=== PATIENT | female | born 1960 | race Caucasian/White ===

== ENCOUNTER → 2017-02-26 | Outpatient (CLI) | payer BC ==
[~2017-02-26] MED LIST: DOCO1CAP2 PO; ERGO80004 PO; ESTR10TA VG; IBUP-1060 PO; LEVO150T5 PO; LISI-338 PO; PREG150C PO; RANI15SY PO
--- NOTE | 2017-02-26 11:05 | KCIC ---
MR of the left hip Indication: Left hip pain for 4 months. No known injury. Technique: Standard multiplanar sequences are obtained. Findings: Bones: No bone lesion, acute fracture or acute bone marrow edema. No femoral head osteonecrosis. Effusion: No significant effusion Cartilage: No evidence of acute cartilage defect or advanced DJD. Labrum: Mild degenerative signal. No clear-cut detachment or tear. Gluteus minimus and medius tendon: Tendinosis with partial tearing of the gluteus minimus tendon. Gluteus medius intact. Hamstring tendon: Intact Iliopsoas tendon: Intact Rectus femoris tendon attachment:Intact Soft tissue:No significant acute findings. Diagnostically limited coronal inversion recovery survey sequence obtained with a large [id number] demonstrates no acute pathology at the contralateral hip or visualized sacroiliac joints. Impression: 1. 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 2. Mild degeneration of the left labrum without evidence of a tear. Electronically signed by: Kristian Mullins MD (02/26/2017 11:02 AM) [id number]
--- NOTE | 2017-02-26 12:05 | KCIC ---
MR of the right hip Indication: Right hip pain for 4 months. No known injury. Technique: Standard multiplanar sequences are obtained. Findings: Bones: No bone lesion, acute fracture or acute bone marrow edema. No femoral head osteonecrosis. Effusion: No significant effusion Cartilage: No evidence of acute cartilage defect or advanced DJD. Labrum: Minimal degenerative-type signal within the labrum without evidence of a tear or detachment. Gluteus minimus and medius tendon: The gluteus minimus tendinosis with partial tearing. Gluteus medius tendon intact. Hamstring tendon: Intact Iliopsoas tendon: Intact Rectus femoris tendon attachment:Intact Soft tissue:No significant acute findings. Impression: 1. 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 2. Mild labral degeneration without tear. Electronically signed by: Kristian Mullins MD (02/26/2017 12:02 PM) [id number]
== END | disposition home or self-care (01) ==
LOC: KCIC MRI 09:18
PROVIDERS: ATTEND Family Medicine
DX: M25.551 Pain in right hip (principal); M25.552 Pain in left hip
CPT/HCPCS: 73721

== ENCOUNTER → 2017-10-04 | Outpatient (CLI) | payer BC | END | disposition home or self-care (01) | LOC: KCIC US 13:03 | DX: N13.2 Hydronephrosis with renal and ureteral calculous obstruction (principal) | CPT/HCPCS: 76770 ==

== ENCOUNTER → 2019-02-15 | Outpatient (CLI) | payer BC ==
[~2019-02-15] MED LIST changes: +ERGO800010 PO; -ERGO80004 PO
--- NOTE | 2019-02-15 10:58 | KCIC ---
LUMBAR SPINE WO CONTRAST History: Back pain. Prior vertebroplasty. Technique: Multiplanar, multi sequential MR imaging was performed of the lumbar spine. Comparison: July 08, 2016 report available. Images not readily available for review. Findings: Chronic L1 vertebral body fracture with vertebroplasty material identified. Otherwise, normal vertebral body height. No acute fracture. Normal alignment. Conus terminates at the normal location. No evidence of nerve root clumping. L1-L2: No canal or neuroforaminal narrowing. L2-L3: No canal or neuroforaminal narrowing. L3-L4: Small posterior disc bulge. Mild facet arthropathy. Bilateral right greater than left facet joint effusions. No canal narrowing. No neural foraminal narrowing. L4-L5: Small posterior disc bulge. Advanced facet arthropathy with bilateral facet joint effusions. Mild bilateral subarticular recess narrowing. No canal narrowing. Ligamentum flavum thickening. No neural foraminal narrowing. L5-S1: Small posterior disc bulge. Small left foraminal disc protrusion. Advanced facet arthropathy with possible left synovial cyst in the neural foramen. Bilateral facet joint effusions. No canal narrowing. Mild left subarticular recess narrowing. Moderate left neural foraminal narrowing with abutment of the exiting left L5 nerve root. Impression: 1. Multilevel lumbar spondylosis with advanced lower lumbar facet arthropathy and facet joint effusions. 2. Small left L5-S1 foraminal protrusion contributing to moderate left neural foraminal narrowing with abutment of the exiting left L5 nerve root. Recommend correlation for left L5 radiculopathy. 3. Chronic L1 compression fracture with vertebroplasty material. Electronically signed by: Bong Gibson DO (02/15/2019 10:55 AM) [id number]
== END | disposition home or self-care (01) ==
LOC: KCIC MRI 09:29
PROVIDERS: ATTEND Orthopaedic Surgery
DX: M47.816 Spondylosis without myelopathy or radiculopathy, lumbar region (principal); M12.88 Other specific arthropathies, not elsewhere classified, other specified site; M25.48 Effusion, other site; M51.27 Other intervertebral disc displacement, lumbosacral region; M48.061 Spinal stenosis, lumbar region without neurogenic claudication; M84.48XD Pathological fracture, other site, subsequent encounter for fracture with routine healing
CPT/HCPCS: 72148

== ENCOUNTER → 2019-04-06 | Outpatient (CLI) | payer BC ==
--- NOTE | 2019-04-07 07:49 | KCIC ---
Exam: Thoracic spine Date: 04/06/2019 12:00 AM CLINICAL HISTORY: BACK PAIN WITH RADICULOPATHY AFFECTING RLE COMPARISON: None FINDINGS: AP and lateral/swimmers views of the thoracic spine submitted. Moderate superimposed artifact at the cervicothoracic junction on the lateral view based on technique. Exam shows preserved disc height throughout. Negative degenerative/proliferative changes. Negative compression fracture. Changes of L1 vertebroplasty are seen. Straightening of the normal thoracic kyphosis. Negative focal paraspinal line deviation/hematoma. Decreased bone mineral density. IMPRESSION: 1. No evidence for acute fracture or subluxation. 2. Decreased bone mineral density. Electronically signed by: Evelio Degroot MD (04/07/2019 7:46 AM) [facility]
--- NOTE | 2019-04-07 07:51 | KCIC ---
EXAM: AP, lateral and lumbosacral spot views with lateral flexion/extension and bilateral oblique views of the lumbar spine DATE: 04/06/2019 12:00 AM INDICATION: Back pain with radiculopathy affecting right lower extremity. COMPARISON: No Prior FINDINGS: For the purposes of this report there are 5 nonrib-bearing lumbar-type vertebral bodies. Changes of L1 vertebral plasty are seen. Vertebral body heights are preserved. No definite new compression fractures seen. Leftward curvature of the lumbar spine apex L3. No spondylolisthesis. Mild L4-5 and moderate T12-L1 disc height loss. Facet degenerative changes at L1-2 and below. No spondylolisthesis. On the mild range of motion provided, no dynamic instability. Right upper quadrant cholecystectomy clips are seen. Moderate colonic stool content. IMPRESSION: 1. Multilevel spondylosis as above 2. Negative acute fracture or subluxation. No dynamic instability. 3. Changes of prior L1 vertebroplasty are seen. Electronically signed by: Evelio Degroot MD (04/07/2019 7:48 AM) [facility]
== END | disposition home or self-care (01) ==
LOC: KCIC 10:26
PROVIDERS: ATTEND Neurological Surgery
DX: M47.26 Other spondylosis with radiculopathy, lumbar region (principal); Z90.49 Acquired absence of other specified parts of digestive tract
CPT/HCPCS: 72072; 72114

== ENCOUNTER → 2020-09-20 | Outpatient (CLI) | payer BC ==
[~2020-09-20] MED LIST changes: -LISI-338 PO; +LISI-517 PO
--- NOTE | 2020-09-20 12:06 | KCIC ---
Bilateral digital screening mammograms with 3-D tomosynthesis: Reason for examination: Routine screening. Comparison is made to previous studies dated 05/06/2015 and 04/19/2014. Bilateral mammograms in CC and oblique projections were obtained with 2-D imaging and 3-D tomosynthes is imaging on a Siemens Inspiration unit and reviewed on the workstation. Interpretation was made wit h the benefit of CAD. The skin and nipples show no abnormalities. No abnormal axillary lymph nodes are seen. The breast par enchyma shows scattered fatty and fibroglandular density. (Breast density: Category B.) There has bee n some parenchymal involution since previous exams. There continues to be a small nodular density at the 4:00 B position of the right breast which is stable. There also continues to be some patchy asymm etry in the parenchyma in the upper outer quadrants which is stable. There are no new dominant masses , suspicious calcifications or architectural distortion. A few scattered calcifications are seen. Impression: No evidence of malignancy. Recommend routine screening. BI-RAD Category 2: Benign. "Our facility is accredited by the [employer] Mammography Program." This patient's information has been entered into a reminder system for the patient to be notified wit h the results of her examination and a target date for the next mammogram. Electronically signed by: Holly Palecnia MD (09/20/2020 12:04 PM) [id number]
== END ==
LOC: KCIC MAMMO 10:08
PROVIDERS: ATTEND Obstetrics & Gynecology
DX: Z12.31 Encounter for screening mammogram for malignant neoplasm of breast (principal)
CPT/HCPCS: 77063; 77067

== ENCOUNTER → 2020-10-02 | Outpatient (CLI) | payer BC ==
--- NOTE | 2020-10-02 17:13 | KCIC ---
Ultrasound of the chest INDICATION: 60-year-old woman with area of concern in the right chest. Patient reports the lump is on ly palpable and she is sitting upright. FINDINGS: Targeted ultrasound of the area of patient reported palpable concern reveals no discrete mass separab le from the subcutaneous fat. Sonographic survey of the right axilla shows no adenopathy or mass IMPRESSION: Negative targeted ultrasound of the patient's area of palpable concern in the right chest. No mass id entified. Electronically signed by: Jazmin Curry MD (10/02/2020 5:11 PM) [id number]
== END ==
LOC: KCIC US 14:40
PROVIDERS: ATTEND Obstetrics & Gynecology
DX: N63.0 Unspecified lump in unspecified breast (principal)
CPT/HCPCS: 76604